=== PATIENT | female | born 1975 | race Caucasian/White ===

== ENCOUNTER 2016-05-29 03:34 | Emergency (ER) | payer SELFPAY ==
[~2016-05-29] VITALS: Ht 165.1 cm; Wt 120.0 kg
[2016-05-29 03:36] VITALS: BP 184/118; PULSE 110; RESP 20; TEMP 98; O2SAT 98
[2016-05-29] MEDS ORDERED: TAMS5CAP PO ×2 (03:50→05:03)
[2016-05-29] MEDS ORDERED: PERC5TAB12 PO ×2 (03:50→05:03)
[2016-05-29 04:03] VITALS: BP 139/96; PULSE 117; RESP 18; O2SAT 96
[2016-05-29] MEDS ORDERED: HYDROmorphone HCL PF 1 MG/ML VIAL IVS ONE (04:15)
[2016-05-29] MEDS ORDERED: ONDANSETRON HCL 4 MG/2 ML VIAL IVP ONE (04:15)
[2016-05-29] MEDS ORDERED: SODIUM CHLORIDE 0.9% FLUSH 5 ML FLUSH IVF PRN (04:15)
[2016-05-29] MEDS ORDERED: LACTATED RINGER'S 1000 ML INJ 1,000 ML IV ONE (04:30)
[2016-05-29 04:31] VITALS: PULSE 104
[2016-05-29 04:35] LABS: AUTOMATED NEUTROPHIL # 5.7 TH/MM3 (1.8-7.7); BASOPHIL % 0.4 % (0.0-2.0); EOSINOPHIL # 0.3 TH/MM3 (0-0.4); EOSINOPHIL % 2.8 % (0.0-4.0); HEMATOCRIT 38.3 % (35.0-46.0); HEMO FLAGS DIFF FINAL; LYMPH % 30.9 % (9.0-44.0); LYMPHOCYTE # 3.1 TH/MM3 (1.0-4.8); MEAN CELL VOLUME 94.1 FL (80.0-100.0); MEAN CORPUSCULAR HEMOGLOBIN 31.3 PG (27.0-34.0); MEAN CORPUSCULAR HGB CONC 33.3 % (32.0-36.0); MONO % 8.1 % (0.0-8.0); NEUT % 57.8 % (16.0-70.0); PLATELET COUNT 268 TH/MM3 (150-450); RED BLOOD COUNT 4.07 MIL/MM3 (4.00-5.30); RED CELL DISTRIBUTION WIDTH 14.8 % (11.6-17.2); WHITE BLOOD COUNT 9.9 TH/MM3 (4.0-11.0)
[2016-05-29 04:54] LABS: BICARBONATE 24.3 MEQ/L (21.0-32.0); POTASSIUM 3.2 MEQ/L (3.5-5.1)
[2016-05-29 05:00] VITALS: BP 137/94; PULSE 101; RESP 18; O2SAT 96
[2016-05-29 05:02] LABS: BLOOD, URINE LARGE (NEG); COMMENT (UR) CULTURE INDICATED; CULTURE IF INDICATED CULTURE INDICATED; GLUCOSE,URINE TRACE mg/dL (NEG); KETONE, URINE NEG (NEG); MUCUS URINE FEW /lpf (OCC); NITRITE,URINE NEG (NEG); PH, URINE 5.5 (5.0-8.5); SQUAMOUS EPITHELIAL CELL URINE 2 /hpf (0-5); URINE COLOR YELLOW (YELLW/STRAW)
--- NOTE | 2016-05-29 05:04 | PD ---
HPI Chief Complaint: Flank/Kidney Pain Time Seen by Provider: 04:02 Travel History International Travel<30 days: No Contact w/Intl Traveler<30days: No Traveled to known affect area: No History of Present Illness HPI 41-year-old female complains of about 4 hours of right flank pain radiating to the right groin. 2 episodes of vomiting occurred. Intermittent nausea has occurred. Onset sudden. 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 She states she has undergone over 42 CAT scans of the abdomen and pelvis. She denies fever. No vaginal bleeding or discharge. Last menstruation greater than 2.5 years ago. 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) ?: Unknown : 2 Para: 2 Past Surgical History Section: Yes (x2) Social History Alcohol Use: No Tobacco Use: No Substance Use: No Allergies-Medications (Allergen,Severity, Reaction): Coded Allergies: Ibuprofen (Verified Allergy, Severe, Swelling, 05/29/16) Morphine (Verified Allergy, Severe, Hives, 05/29/16) Toradol (Verified Allergy, Severe, Hives, 05/29/16) Reported Meds & Prescriptions Reported Meds & Active Scripts Active Cipro (Ciprofloxacin HCl) 500 Mg Tab 500 Mg PO BID 5 Days Flomax (Tamsulosin HCl) 0.4 Mg Cap 0.4 Mg PO DAILY Percocet (Oxycodone-Acetaminophen) 5-325 mg Tab 1-2 Tab PO Q6HR PRN Review of Systems Except as stated in HPI: all other systems reviewed are Neg Physical Exam Narrative GENERAL: 41 yo F, pleasant, moderate distress SKIN: Warm and dry. HEAD: Atraumatic. Normocephalic. EYES: Pupils equal and round. No scleral icterus. No injection or drainage. ENT: No nasal bleeding or discharge. Mucous membranes pink and moist. NECK: Trachea midline. No JVD. CARDIOVASCULAR: Regular rate and rhythm. RESPIRATORY: No accessory muscle use. Clear to auscultation. Breath sounds equal bilaterally. GASTROINTESTINAL: R flank tenderness to percussion. Abdomen soft, NTND. MUSCULOSKELETAL: Extremities without clubbing, cyanosis, or edema. No obvious deformities. NEUROLOGICAL: Awake and alert. No obvious cranial nerve deficits. Motor grossly within normal limits. Five out of 5 muscle strength in the arms and legs. Normal speech. PSYCHIATRIC: Appropriate mood and affect; insight and judgment normal. Data Data Last Documented VS Vital Signs Date Time Temp Pulse Resp B/P Pulse Ox O2 Delivery O2 Flow Rate FiO2 05/29/16 05:14 90 05/29/16 05:00 18 137/94 96 Room Air 05/29/16 03:36 98.0 VS reviewed Orders Basic Metabolic Panel (Bmp) (05/29/16 04:02) Complete Blood Count With Diff (05/29/16 04:02) Urinalysis - C+S If Indicated (05/29/16 04:02) Iv Access Insert/Monitor (05/29/16 04:02) Ecg Monitoring (05/29/16 04:02) Oximetry (05/29/16 04:02) Ondansetron Inj (Zofran Inj) (05/29/16 04:15) Sodium Chloride 0.9% Flush (Ns Flush) (05/29/16 04:15) Hydromorphone Pf Inj (Dilaudid Pf Inj) (05/29/16 04:15) Ed Urine Pregnancytest Poc (05/29/16 04:02) Lactated Ringer's 1000 Ml Inj (Lr 1000 M (05/29/16 04:30) Urine Culture (05/29/16 04:25) Potassium Chloride (Kcl) (05/29/16 05:15) Ciprofloxacin (Cipro) (05/29/16 05:15) Hydromorphone Pf Inj (Dilaudid Pf Inj) (05/29/16 05:15) Labs Laboratory Tests Test 05/29/16 04:25 White Blood Count 9.9 TH/MM3 Red Blood Count 4.07 MIL/MM3 Hemoglobin 12.7 GM/DL Hematocrit 38.3 % Mean Corpuscular Volume 94.1 FL Mean Corpuscular Hemoglobin 31.3 PG Mean Corpuscular Hemoglobin 33.3 % Concent Red Cell Distribution Width 14.8 % Platelet Count 268 TH/MM3 Mean Platelet Volume 9.8 FL Neutrophils (%) (Auto) 57.8 % Lymphocytes (%) (Auto) 30.9 % Monocytes (%) (Auto) 8.1 % Eosinophils (%) (Auto) 2.8 % Basophils (%) (Auto) 0.4 % Neutrophils # (Auto) 5.7 TH/MM3 Lymphocytes # (Auto) 3.1 TH/MM3 Monocytes # (Auto) 0.8 TH/MM3 Eosinophils # (Auto) 0.3 TH/MM3 Basophils # (Auto) 0.0 TH/MM3 CBC Comment DIFF FINAL Differential Comment Urine Color YELLOW Urine Turbidity CLEAR Urine pH 5.5 Urine Specific [place] 1.025 Urine Protein TRACE mg/dL Urine Glucose (UA) TRACE mg/dL Urine Ketones NEG mg/dL Urine Occult Blood LARGE Urine Nitrite NEG Urine Bilirubin NEG Urine Urobilinogen LESS THAN 2.0 MG/DL Urine Leukocyte Esterase SMALL Urine RBC /hpf Urine WBC 17 /hpf Urine Squamous Epithelial 2 /hpf Cells Urine Mucus FEW /lpf Microscopic Urinalysis Comment CULTURE INDICATED Sodium Level 139 MEQ/L Potassium Level 3.2 MEQ/L Chloride Level 105 MEQ/L Carbon Dioxide Level 24.3 MEQ/L Anion Gap 10 MEQ/L Blood Urea Nitrogen 14 MG/DL Creatinine 0.91 MG/DL Estimat Glomerular Filtration 69 ML/MIN Rate Random Glucose 91 MG/DL Calcium Level 9.2 MG/DL [facility] Medical Decision Making Medical Screen Exam Complete: Yes Emergency Medical Condition: Yes Differential Diagnosis Constipation, Gastritis, Acute Cholecystitis, Biliary Colic, Pancreatitis, ARCE , Hepatitis, Bowel Obstruction, Cystitis, Mesenteric Ischemia, AAA, Appendicitis , Renal Stone/Hydronephrosis, GERD, perforated viscous Narrative Course CBC & BMP Diagram 05/29/16 04:25 UA: hematuria with some WBCs, will cover for UTI.potassium replenished. return precautions discussed. pt ready for discharge. Diagnosis Primary Impression: Right flank pain Additional Impression: Hematuria Referrals: Urologist 2 days Additional Instructions: You have a choice when it comes to health care, and we are glad that you chose [facility]. Hopefully, we have met your expectations on today's visit. You are welcome to return to [facility] at any time, as we are committed to meeting the health care needs of our community. Med/Other Pt SpecificInfo: Prescription(s) given Scripts Ciprofloxacin (Cipro)500 Mg [id number] Mg PO BID 5 Days Ref 0 Prov:Garcia Blackwood MD 05/29/16 Tamsulosin (Flomax)0.4 Mg Cap0.4 Mg PO DAILY #10 CAP Ref 0 Prov:Garcia Blackwood MD 05/29/16 Oxycodone-Acetaminophen (Percocet)5-325 mg Tab1-2 Tab PO Q6HR PRN (PAIN) #20 TAB Ref 0 Prov:Garcia Blackwood MD 05/29/16 Disposition: 01 DISCHARGE HOME Condition: Stable Garcia Blackwood MD May 29, 2016 05:04
[2016-05-29] MEDS ORDERED: CIPR-9 PO (05:06)
[2016-05-29 05:14] VITALS: PULSE 90
[2016-05-29] MEDS ORDERED: CIPROFLOXACIN 750 MG TAB PO ONE (05:15)
[2016-05-29] MEDS ORDERED: POTASSIUM CHLORIDE 20 MEQ CONTROLLED RELEASE TAB PO ONE (05:15)
[2016-05-29] MEDS ORDERED: HYDROmorphone HCL PF 1 MG/ML VIAL IV PUSH ONE (05:15)
== END 2016-05-29 05:57 | disposition home or self-care (01) ==
LOC: NEPC 03:34
DX: R10.31 Right lower quadrant pain (principal); R31.9 Hematuria, unspecified; R11.2 Nausea with vomiting, unspecified; Z87.442 Personal history of urinary calculi; Z87.448 Personal history of other diseases of urinary system; Z86.69 Personal history of other diseases of the nervous system and sense organs
CPT/HCPCS: 80048; 81001; 84703; 85025; 87086; 96361; 96374; 96375; 96376; 99284; J1170; J2405; J7120